=== PATIENT | male | born 1955 | race African-American/Black ===

== ENCOUNTER 2017-02-10 07:18 | Emergency (ER) | payer OTHER ==
--- NOTE | ~2017-02-10 | CR169 ---
[facility] A Service [facility] RADIOLOGY TEXT RESULTS PATIENT: KYRIE NAVARRETE LOCATION: SED : 51 UNIT #: [id number] AGE: [address]: Vern Mahan MD SEX: M ORDER DR: [id number] [place] [id number] E MR#: [id number] Acc #: [id number] NAME: YKRIE NAVARRETE. : 1955 SEX: M STUDY DATE/TIME: 02/10/2017 7:43 UNIT: SED ROOM: STUDY DESCRIPTION: CR Knee 2 Views Lt Attending Physician: Vern Mahan M.D. Ordering Physician: Vern Mahan M.D. MEDICAL IMAGING REPORT This report is preliminary unless electronic signature is present. EXAM 2 views left knee DATE 02/10/2017 HISTORY 62-year-old male with complaints of left knee swelling and pain for 1 month. No documented injury. COMPARISON None. FINDINGS No fracture, joint dislocation, or joint effusion. There is [id number] medial compartment joint space narrowing. There is spurring of the medial tibial spine, and a small posterior-inferior patellar osteophyte is noted. No osteolytic or osteoblastic abnormalities are seen. IMPRESSION 1. No acute left knee findings. 2. 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 Dictated by... Ana Molina M.D. THIS IS AN ELECTRONICALLY VERIFIED REPORT Ana Molina M.D. at 02/13/2017 8:35 AM [facility] A Service [facility] RADIOLOGY TEXT RESULTS PATIENT: KYRIE NAVARRETE LOCATION: SED : 53 UNIT #: [id number] AGE: [address]: Vern Mahan MD SEX: M ORDER DR: Osiel TD: 02/10/2017 12:00 JOB #: [id number] MEDICAL IMAGING REPORT Page 1 of 1
[2017-02-10] MEDS ORDERED: NO MEDICATIONS (07:24)
== END 2017-02-10 09:27 | disposition home or self-care (01) ==
LOC: SED 07:18
DX: M13.862 Other specified arthritis, left knee (principal)
CPT/HCPCS: 29530; 73560; 99283